=== PATIENT | female | born 1975 | race Caucasian/White ===

== ENCOUNTER → 2016-08-13 | Outpatient (CLI) | payer BC ==
[~2016-08-13] MED LIST: GADAVIST IV PRN
--- NOTE | 2016-08-15 12:32 | MAMMOGRAPHY REPORT ---
BREAST MRI OF BOTH BREASTS : 08/14/2016 CLINICAL HISTORY: 41 year-old woman initially brought back from screening mammography for possible a rchitectural distortion in the right medial breast posteriorly. This finding thought to be benign g iven that there was no corresponding enhancement or evidence of distortion seen on MRI. Incidentall y identified in the left breast retroareolar region was a small 2 x 3 mm enhancing focus for which f ollow-up was recommended. COMPARISON: Comparison is made to exams dated: 02/13/2016 breast MRI, 02/07/2016 ultrasound, 6 mammogram, 01/20/2016 mammogram, 01/12/2015 mammogram, and 12/24/2013 mammogram - [facility]. TECHNIQUE: Using a 1.5 Irma magnet and dedicated breast coil, multisequence axial images were obtai ricci through the breasts. After uneventful IV administration of 5.5 mL of Gadavist, dynamic multipha se contrast-enhanced axial images, and sagittal postcontrast were obtained. Temporal subtraction ax ial images and 3-D MIP images are provided. Everything was then reviewed on a 3-D workstation, [employer]. FINDINGS: There is no significant background parenchymal enhancement of the breasts. Again seen is a small enhancing focus in the posterior retroareolar left breast (axial image 42/116). There is mi ld corresponding T2 hyperintensity and it measures 2.2 x 2.7 mm. Given the small size of this focus the measurements are felt to be stable compared to the prior MRI. No other suspicious enhancing ma ss, non-mass enhancement, suspicious kinetics or architectural distortion is identified bilaterally. There is no focal skin thickening or nipple retraction. No suspicious axillary lymphadenopathy is identified. IMPRESSION: ACR-BI-RADS CATEGORY 3: PROBABLY BENIGN 1. A small, 2-3 mm enhancing focus in the retroareolar left breast is stable comparing to the prior MRI. This focus could be within the range of background but given that it is the only discrete foc us seen in either breast, longer stability is needed. Another six-month follow-up breast MRI is rec ommended. 2. Stable MRI appearance of the right breast, without MRI evidence of malignancy. 3. Annual bilateral screening mammography will also be due near the time of follow-up breast MRI. The patient will receive written notification of the results. Ally Gudino M.D. 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
== END | disposition home or self-care (01) ==
LOC: C.MRI 16:39
PROVIDERS: ATTEND Family Medicine
DX: R92.8 Other abnormal and inconclusive findings on diagnostic imaging of breast (principal)

== ENCOUNTER → 2016-12-18 | Outpatient (CLI) | payer BC ==
[2016-12-18 13:40] LABS: BASO % 1.4 %; BASO ABS # 0.06 K/uL (0-0.2); COMPLETE YES; EOS % 3.1 %; HEMATOCRIT 40.1 % (37-47); IG% 0.2 %; LYMPH % 34.1 %; LYMPH ABS # 1.42 K/uL (1.2-3.4); MEAN CELL VOLUME 89.3 fL (80-100); MEAN CORPUSCULAR HEMOGLOBIN 29.6 pg (25-34); MEAN CORPUSCULAR HGB CONC 33.2 g/dl (32-36); MEAN PLATELET VOLUME 10.5 fL (7.4-10.4); MONO % 9.6 %; NEUT % 51.6 %; PLATELET COUNT 187 K/uL (130-400); RED BLOOD COUNT 4.49 M/uL (4.2-5.4); WHITE BLOOD COUNT 4.16 K/uL (4.8-10.8)
[2016-12-18 14:02] LABS: BLOOD UREA NITROGEN 17 mg/dl (7-18); BUN/CREATININE RATIO 23.6 (10-20); CALCIUM 8.9 mg/dl (8.5-10.1); CARBON DIOXIDE 30 mmol/L (21-32); CHLORIDE 108 mmol/L (98-107); CREATININE 0.73 mg/dl (0.60-1.20); GLUCOSE 87 mg/dl (70-99); POTASSIUM 4.3 mmol/L (3.5-5.1); SODIUM 142 mmol/L (136-145); TRIGLYCERIDES 59 mg/dl (0-150); VERY LOW DENSITY LIPOPROT CALC 12 mg/dl
[2016-12-18 14:08] LABS: ALB/GLOB RATIO 1.2 (0.9-2); ALKALINE PHOSPHATASE 60 U/L (45-117); ALT/SGPT 30 U/L (12-78); AST/SGOT 23 U/L (15-37); CHOLESTEROL 178 mg/dl (0-200); CHOLESTEROL/HDL RATIO 2.9; HDL CHOLESTEROL 62 mg/dl; LDL CHOLESTEROL CALCULATED 104 mg/dl
== END | disposition home or self-care (01) ==
LOC: C.LABMFLN 09:51
PROVIDERS: ATTEND Family Medicine
DX: Z00.00 Encounter for general adult medical examination without abnormal findings (principal); E78.9 Disorder of lipoprotein metabolism, unspecified

== ENCOUNTER → 2017-01-29 | Outpatient (CLI) | payer BC ==
--- NOTE | 2017-01-30 13:49 | MAMMOGRAPHY REPORT ---
BILATERAL DIGITAL SCREENING MAMMOGRAM TOMOSYNTHESIS WITH CAD: 01/29/2017 CLINICAL HISTORY: Routine screening. TECHNIQUE: Breast tomosynthesis in addition to standard 2D mammography was performed. Current study was also evaluated with a Computer Aided Detection (CAD) system. COMPARISON: Comparison is made to exams dated: 02/07/2016 mammogram, 01/20/2016 mammogram, 01/12/2015 m ammogram, 12/24/2013 mammogram, 08/14/2016 breast MRI, and 02/13/2016 breast MRI - [facility]. BREAST COMPOSITION: The tissue of both breasts is extremely dense, which lowers the sensitivity of m ammography. FINDINGS: There is a benign coarse calcification in the superior left breast. No focal area of arch itectural distortion is seen bilaterally. No obvious new mass or new microcalcifications. IMPRESSION: ACR BI-RADS CATEGORY 1: NEGATIVE 1. There is no mammographic evidence of malignancy. A 1 year screening mammogram is recommended. 2. The patient is also due for a follow-up breast MRI. The patient will receive written notification of the results. Approximately 10% of breast cancers are not detected with mammography. A negative mammographic report should not delay biopsy if a clinically suggestive mass is present. Ally Gudino M.D. ay/:01/29/2017 17:29:40 Machine Clothing Man: Ovi FRANCOIS(Vaishnavi)(M), [facility] letter sent: Normal 1/2 BI-RADS Code: ACR BI-RADS Category 1: Negative
== END | disposition home or self-care (01) ==
LOC: C.MAMM 16:20
PROVIDERS: ATTEND Family Medicine
DX: Z12.31 Encounter for screening mammogram for malignant neoplasm of breast (principal)

== ENCOUNTER → 2017-02-18 | Outpatient (CLI) | payer BC ==
--- NOTE | 2017-02-19 07:54 | MAMMOGRAPHY REPORT ---
BREAST MRI OF BOTH BREASTS : 02/18/2017 CLINICAL HISTORY: 41-year-old woman with extremely dense breasts initially called back from screening for a questionable area of architectural distortion in the medial right breast. There was no abnorm al enhancement in this region on MRI but an enhancing focus was identified in the retroareolar left b reast for which follow-up was recommended to ensure stability. COMPARISON: Comparison is made to exams dated: 01/29/2017 mammogram, 08/14/2016 breast MRI, 02/13/2016 b reast MRI, 02/07/2016 ultrasound, 02/07/2016 mammogram, and 01/20/2016 mammogram - [facility]. TECHNIQUE: Using a 1.5 Irma magnet and dedicated breast coil, multisequence axial images were obtain ed through the breasts. After uneventful IV administration of 5 mL of Gadavist, dynamic multiphase c ontrast-enhanced axial images, and sagittal postcontrast were obtained. Temporal subtraction axial i mages and 3-D MIP images are provided. Everything was then reviewed on a 3-D workstation, [employer]. FINDINGS: There is mild background parenchymal enhancement of the breasts, with non-mass enhancement in the lower outer and 6:00 axes of both breasts, likely within the range a background, but increased compared to the prior MRIs. A 2.5 mm focus of enhancement is again seen in the posterior retroareol ar versus 6:00 posterior left breast on the axial images, but this is less conspicuous on the sagitta l images. This has associated plateau kinetics and does not appear significantly changed comparing t o the MRI performed on 02/13/2016. This is most likely within the range of background enhancement. No other new suspicious enhancing mass, suspicious area of non-mass enhancement or suspicious kinetic s is seen in either breast. No focal skin thickening or nipple retraction. The retromammary fat is intact. No suspicious axillary lymphadenopathy bilaterally. IMPRESSION: ACR-BI-RADS CATEGORY 3: PROBABLY BENIGN 1. There is mild increased background enhancement in both breasts comparing to prior MRIs. However, a 2.5 mm focus of enhancement in the posterior retroareolar versus 6:00 posterior left breast is aga in identified and appears unchanged in size since a prior MRI performed 1 year ago. Another 12 month follow-up breast MRI is recommended to ensure at least 2 years of stability to confirm benignity. 2. Stable MRI appearance of the right breast, without evidence of malignancy. 3. No suspicious axillary lymphadenopathy bilaterally. The patient will receive written notification of the results. Ally Gudino M.D. 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
== END | disposition home or self-care (01) ==
LOC: C.MRI 14:21
PROVIDERS: ATTEND Family Medicine
DX: R92.8 Other abnormal and inconclusive findings on diagnostic imaging of breast (principal); Z12.31 Encounter for screening mammogram for malignant neoplasm of breast

== ENCOUNTER → 2017-05-01 | Outpatient (CLI) | payer BC | END | disposition home or self-care (01) | LOC: C.LAB1850 17:02 | PROVIDERS: ATTEND Obstetrics & Gynecology | DX: N89.8 Other specified noninflammatory disorders of vagina (principal) ==

== ENCOUNTER → 2017-05-01 | Outpatient (CLI) | payer BC | END | disposition home or self-care (01) | LOC: C.PAPS 17:49 | PROVIDERS: ATTEND Obstetrics & Gynecology | DX: Z01.419 Encounter for gynecological examination (general) (routine) without abnormal findings (principal) ==

== ENCOUNTER → 2017-12-19 | Outpatient (CLI) | payer BC ==
[2017-12-19 13:08] LABS: ALBUMIN 3.8 gm/dl (3.4-5.0); ALKALINE PHOSPHATASE 59 U/L (45-117); ALT/SGPT 24 U/L (12-78); AST/SGOT 20 U/L (15-37); BLOOD UREA NITROGEN 22 mg/dl (7-18); CALCIUM 8.8 mg/dl (8.5-10.1); CARBON DIOXIDE 29 mmol/L (21-32); CHOLESTEROL 183 mg/dl (0-200); CREATININE 0.81 mg/dl (0.60-1.20); GLUCOSE 79 mg/dl (70-99); LDL CHOLESTEROL CALCULATED 99 mg/dl; SODIUM 139 mmol/L (136-145); TOTAL PROTEIN 7.4 gm/dl (6.4-8.2)
== END | disposition home or self-care (01) ==
LOC: C.LABMFLN 10:02
PROVIDERS: ATTEND Physician Assistant
DX: E78.00 Pure hypercholesterolemia, unspecified (principal)